=== PATIENT | male | born 1990 | race Two or more races ===

== ENCOUNTER 2019-04-16 09:44 | Emergency (ER) | payer SELFPAY ==
[~2019-04-16] VITALS: Ht 170.2 cm; Wt 60.3 kg
--- NOTE | 2019-04-16 09:58 | NUR ---
CAME IN FOR HEADACHE x 5 DAYS, MOUTH SORES x 2 DAYS, FEBRILE [employer]. TO ER BED 11, HOOKED TO MONITOR, CAHNGED TO HOSP GOWN, PROVIDED W WARM BLANKET, AWAITING MD PARKS.
--- NOTE | 2019-04-16 10:04 | NUR ---
DR ALARCON AT BEDSIDE
[2019-04-16] MEDS ORDERED: KETOROLAC TROMETHAMINE INJ 60 MG/2 ML VIAL IM ONE ×2 (10:16→10:30)
[2019-04-16 11:00] VITALS: BP 112/82
--- NOTE | 2019-04-16 11:00 | NUR ---
Patient discharged to home in stable condition. Written and verbal after care instructions given. Patient verbalizes understanding of instruction.
== END 2019-04-16 11:01 | disposition home or self-care (01) ==
LOC: ER 09:45
DX: A69.1 Other Vincent's infections (principal); F15.90 Other stimulant use, unspecified, uncomplicated
CPT/HCPCS: 96372; 99283; J1885